=== PATIENT | female | born 1945 | race Caucasian/White ===

== ENCOUNTER → 2019-06-27 | Outpatient (CLI) | payer OTHER | LOC: ULTRA 15:15 | DX: M79.661 Pain in right lower leg (principal) ==

== ENCOUNTER → 2021-08-27 | Outpatient (CLI) | payer OTHER ==
[~2021-08-27] MED LIST: LIPITOR10 MG PO; PAXIL10 MG PO; VITAMIN D3125 MC1 PO
== END | disposition home or self-care (01) ==
LOC: LAB 05:45
PROVIDERS: ATTEND Student in an Organized Health Care Education/Training Program
DX: Z01.818 Encounter for other preprocedural examination (principal); Z20.822 Contact with and (suspected) exposure to COVID-19

== ENCOUNTER → 2021-08-29 | Outpatient (CLI) | payer OTHER ==
[~2021-08-29] VITALS: Ht 167.6 cm; Wt 71.7 kg
--- NOTE | 2021-09-01 13:21 | P ---
[facility] [place] [address] PROCEDURE REPORT Name: BRODIE ZAMAN Room #: REG ELMO Gleason.#: [id number] Admission: 08/29/21 Attend Phys: Fredrick Boucher Discharge: Date of : 43 Report #: [id number] THIS REPORT FOR: cc: Marshall Che MD, Thomas P. MD McElhinney, Christian C. MD ~ DATE OF SERVICE: 08/29/2021 PROCEDURE PERFORMED: Colonoscopy with polypectomies. HISTORY OF PRESENT ILLNESS: The patient is a 75-year-old female with a history of adenomatous polyps in 2017 on last colonoscopy. She also has a family history of colon cancer in her sister. She denies any symptoms. Plan is for colonoscopy. DESCRIPTION OF PROCEDURE: The risks and benefits of the procedure were explained to the patient, those risks including but not limited to bleeding, perforation and the risk of sedation. She understood these risks and gave informed consent. Sedation was given using propofol per anesthesia. Next, a digital rectal exam was initially performed, which was normal. Next, using a standard Olympus colonoscope, the scope was placed in the patient's anus and advanced under direct vision to the cecum. The overall prep was good. The cecum and ileocecal valve were normal in appearance. In the proximal ascending colon, a 6 mm sessile polyp was noted. This was removed by snare cautery, otherwise normal. The transverse and descending colon were normal. A few small scattered diverticula were noted in the sigmoid colon. No evidence of inflammation, otherwise normal. In the rectum, there was a 4 mm sessile polyp. This was removed with cold forceps. On retroflexion, a small nonbleeding internal hemorrhoid was noted. The scope was then withdrawn and the procedure terminated. The patient tolerated the procedure well. IMPRESSION: 1. Two small colonic polyps. 2. Sigmoid diverticulosis. 3. Small internal hemorrhoids. 4. Otherwise, normal colonoscopy. RECOMMENDATIONS: 1. Await biopsy results. 2. Repeat colonoscopy in [address] [address] PROCEDURE REPORT Name: BRODIE ZAMAN Room #: REG ELMO Badillo#: [id number] Admission: 08/29/21 Attend Phys: Fredrick Boucher Discharge: Date of : 43 Report #: [id number] Thank you for allowing me to participate in her care. <ELECTRONICALLY SIGNED> By: Fredrick York MD 09/01/21 1321 0925 2037 Fredrick York MD /nt
--- NOTE | 2021-09-03 14:07 | PATH ---
[facility] [address] [place] [address] PATHOLOGY RPT PROCEDURE Name: JULIA PICKERINGJOANA Room #: REG [facility] M.R.#: [id number] Admission: 08/29/21 Date of : 43 Discharge: Report #: [id number] Path Case #: [id number] [facility] Accession Number: [id number] . 01 Material submitted: . PART A: colon - ASCENDING COLON POLYP. Modifiers: ascending PART B: rectum - RECTAL POLYP . 01 Clinical history: . COLONOSCOPY PERSONAL HISTORY OF COLONIC POLYPS DIVERTICULOSIS AND COLON POLYP . 01 Diagnosis: A. Colonic mucosa, "ascending colon polyp biopsy": - Tubular adenoma. - There is no evidence of high-grade dysplasia or malignancy. . B. Colonic mucosa, "rectal polyp biopsy": - Tubular adenoma. - There is no evidence of high-grade dysplasia or malignancy. . (JAYASHREE:dc; 09/02/2021) MBR 09/02/2021 1042 Local . 01 Electronically signed: . Mike Melendez MD, Pathologist NPI- [id number] . 01 Gross description: . A. The specimen is received in formalin, labeled "Brodie Pickering, ascending colon polyp". Received are five segments of pale allen tissue ranging in size from 0.3-0.5 cm in maximum dimensions. The specimen is submitted entirely in cassette A1. . B. The specimen is received in formalin, labeled "Brodie Pickering, rectal polyp". Received is a segment of pale allen tissue measuring 0.5 cm maximum dimensions. The specimen is submitted entirely in cassette B1. (CAA; 09/01/2021) QAC/QAC 09/01/2021 1233 Local . 01 Pathologist provided ICD-10: D12.2, D12.8 . 01 CPT . 423110, 913614 Specimen Comment: A courtesy copy of this report has been sent to [phone] [address] PATHOLOGY RPT PROCEDURE Name: BRODIE ZAMAN ANN Room #: REG [facility]..#: [id number] Admission: 08/29/21 Date of : 43 Discharge: Report #: [id number] Path Case #: [id number] Specimen Comment: [id number] Specimen Comment: Report sent to / DR TRIPP Specimen Comment: A duplicate report has been generated due to demographic updates. Performed at: 01 [facility] [address], [place], [place] [id number] MD Mike Melendez MD Phone: [phone]
== END | disposition home or self-care (01) ==
LOC: GI
PROVIDERS: ATTEND Specialist
DX: Z12.11 Encounter for screening for malignant neoplasm of colon (principal); Z86.010 Personal history of colon polyps; Z80.0 Family history of malignant neoplasm of digestive organs; D12.2 Benign neoplasm of ascending colon; D12.8 Benign neoplasm of rectum; K57.30 Diverticulosis of large intestine without perforation or abscess without bleeding; K64.8 Other hemorrhoids; E78.00 Pure hypercholesterolemia, unspecified; F32.9 Major depressive disorder, single episode, unspecified; Z98.890 Other specified postprocedural states; Z79.899 Other long term (current) drug therapy; Z87.891 Personal history of nicotine dependence; Z90.49 Acquired absence of other specified parts of digestive tract
CPT/HCPCS: 62110; 62900